=== PATIENT | male | born 1990 | race Caucasian/White ===

== ENCOUNTER 2020-04-17 23:50 | Emergency (ER) | payer SELFPAY ==
[~2020-04-17] VITALS: Ht 177.8 cm; Wt 72.6 kg
[2020-04-17 23:53] VITALS: BP 148/85
--- NOTE | 2020-04-18 00:01 | NUR ---
DR MCDONOUGH EVALUATING PT
--- NOTE | 2020-04-18 00:11 | NUR ---
no nursing intervention ordered by Dr. Dominguez.
--- NOTE | 2020-04-18 00:11 | NUR ---
pt discharged to [facility] armed custom protection officer Nick #[id number] with [employer]. discharge education provided. wristband removed. opportunity to ask questions provided.
== END 2020-04-18 00:11 ==
LOC: MED 23:50
DX: Z02.89 Encounter for other administrative examinations (principal); V19.9XXA Pedal cyclist (driver) (passenger) injured in unspecified traffic accident, initial encounter; Y93.89 Activity, other specified; Y92.89 Other specified places as the place of occurrence of the external cause; Y99.8 Other external cause status
CPT/HCPCS: 99283